=== PATIENT | female | born 1980 | race Asian ===

== ENCOUNTER 2018-07-01 12:00 | Inpatient (IN) | payer SELFPAY ==
[~2018-07-01] VITALS: Ht 158 cm; Wt 69.4 kg
[2018-07-01 10:23] LABS: BASOPHILS % (AUTO) 0.2 % (0.0-2.0); EOSINOPHILS % (AUTO) 0.6 % (0.0-4.0); HEMATOCRIT 39.4 % (36-48); LYMPHOCYTES # (AUTO) 1.4 K/uL (1.0-5.5); LYMPHOCYTES % (AUTO) 25.4 % (20.5-51.5); MEAN CORPUSCULAR HEMOGLOBIN 31 pg (27-31); MEAN CORPUSCULAR HGB CONC 33 % (32-36); MEAN CORPUSCULAR VOLUME 93 fL (79.0-98.0); MONOCYTES # (AUTO) 0.4 K/uL (0.0-1.0); NEUTROPHILS # (AUTO) 3.9 K/uL (1.8-7.7); NEUTROPHILS % (AUTO) 66.8 % (40.0-70.0); PLATELET COUNT (AUTO) 269 K/uL (130-430); RED BLOOD CELL COUNT(AUTO) 4.23 MIL/uL (4.2-6.2); RED CELL DISTRIBUTION WIDTH 13.3 % (9.0-15.0); WHITE BLOOD COUNT (AUTO) 5.7 K/uL (4.8-10.8)
[2018-07-01 10:31] LABS: BILIRUBIN,URINE NEGATIVE (NEGATIVE); CLARITY/URINE CLEAR (CLEAR); COLOR,URINE YELLOW (YELLOW); GLUCOSE,URINE NEGATIVE (NEGATIVE); KETONES,URINE NEGATIVE (NEGATIVE); LEUKOCYTE ESTERASE ,URINE 3+ (NEGATIVE); NITRITE, URINE NEGATIVE (NEGATIVE); PROTEIN URINE NEGATIVE (NEGATIVE); UROBILINOGEN,URINE 0.2 (0.2-1.0)
[2018-07-01 10:35] LABS: BLOOD, URINE TRACE (NEGATIVE)
[2018-07-01 11:26] LABS: BACTERIA,URINE MODERATE /HPF (None Seen); WBC,URINE 20-50 /HPF (0-3)
[2018-07-01 11:27] LABS: MUCUS,URINE None Seen /LPF (None Seen); URINE AMORPHOUS PHOSPHATES 2+ /HPF (None Seen); YEAST,URINE None Seen /HPF (None Seen)
[2018-07-02] MEDS ORDERED: CEFAZOLIN 2 GM IVPB PREMIX 50 ML IV ONE (10:15)
[2018-07-02] MEDS ORDERED: LR 1,000 ML IV ONE (10:15)
[2018-07-02 11:25] VITALS: BP_SYST 119
[2018-07-02] MEDS ORDERED: LANOLIN 7 GM OINT. TP PRN (12:15)
[2018-07-02] MEDS ORDERED: MEASLES,MUMPS&RUBELLA VACC/PF 12500 UNIT/0.5 ML VIAL SUBQ PRN (12:15)
[2018-07-02] MEDS ORDERED: ANUSOL 1 EA SUPP.RECT (PREPARATION H) RC PRN (12:15)
[2018-07-02] MEDS ORDERED: OXYCODONE/ACETAMINOPHEN 5-325 TABLET PO PRN (12:15)
[2018-07-02] MEDS ORDERED: HYDROcodone/ACETAMIN 5-325 MG TAB (NORCO/ VICODIN) PO PRN (12:15)
[2018-07-02] MEDS ORDERED: OXYTOCIN/0.9 % SODIUM CHLORIDE 1,000 ML IV ONE ×2 (12:15→13:43)
[2018-07-02] MEDS ORDERED: LR 1,000 ML IV SCH (12:42)
[2018-07-02] MEDS ORDERED: KETOROLAC TROMETHAMINE 60 MG/2 ML VIAL IM PRN (12:45)
[2018-07-02] MEDS ORDERED: ONDANSETRON HCL 4 MG/2 ML VIAL IVP PRN (12:45)
[2018-07-02] MEDS ORDERED: METOCLOPRAMIDE HCL 10 MG/2 ML VIAL IVP PRN (12:45)
[2018-07-02] MEDS ORDERED: NALOXONE HCL 0.4 MG/ML AMP (NARCAN) IVP PRN (12:45)
[2018-07-02] MEDS ORDERED: MORPHINE SULFATE 10MG/10ML PF AMP SP SCH (12:45)
[2018-07-02] MEDS ORDERED: MEPERIDINE HCL/PF 25 MG/ML DISP.SYRIN IVP PRN (12:45)
[2018-07-02] MEDS ORDERED: DIPHENHYDRAMINE INJ 50 MG/ML VIAL IM PRN (12:45)
[2018-07-02] MEDS ORDERED: MEPERIDINE HCL/PF 50 MG/ML AMP IVP PRN ×2 (12:45)
[2018-07-02 13:30] VITALS: BP_SYST 105
[2018-07-02] MEDS ORDERED: ONDANSETRON HCL 4 MG/2 ML VIAL ONE (13:30)
[2018-07-02] MEDS ORDERED: OXYTOCIN 10 UNIT/ML VIAL ONE (13:30)
[2018-07-02] MEDS ORDERED: LR 1,000 ML IV.SOLN IV ONE (13:30)
[2018-07-02] MEDS ORDERED: MIDAZOLAM HCL 5 MG/ML VIAL (VERSED) IV ONE (13:30)
[2018-07-02] MEDS ORDERED: BUPIVACAINE /DEX PF 0.75% SPINAL 2 ML AMP INJ ONE (13:30)
[2018-07-02] MEDS ORDERED: NS IRRIG SOLN 1000 ML IR ONE (13:30)
[2018-07-02] MEDS ORDERED: MORPHINE SULFATE 10MG/10ML PF AMP ONE (13:30)
[2018-07-02] MEDS: CEFAZOLIN 1 GM IVPB PREMIX 50 ML IV SCH (17:46)
[2018-07-02] MEDS ORDERED: TEMAZEPAM 15 MG CAPSULE PO PRN (21:00)
[2018-07-03] MEDS: CEFAZOLIN 1 GM IVPB PREMIX 50 ML IV SCH ×2 (00:16→05:23)
[2018-07-03 05:06] LABS: BASOPHILS # (AUTO) 0.1 K/uL (0.0-0.2); BASOPHILS % (AUTO) 0.8 % (0.0-2.0); EOSINOPHILS % (AUTO) 0.2 % (0.0-4.0); HEMATOCRIT 34.3 % (36-48); HEMOGLOBIN 11.7 g/dL (12.0-16.0); LYMPHOCYTES # (AUTO) 1.1 K/uL (1.0-5.5); LYMPHOCYTES % (AUTO) 11.2 % (20.5-51.5); MEAN CORPUSCULAR HEMOGLOBIN 32 pg (27-31); MEAN CORPUSCULAR HGB CONC 34 % (32-36); MEAN CORPUSCULAR VOLUME 93 fL (79.0-98.0); MONOCYTES # (AUTO) 0.6 K/uL (0.0-1.0); NEUTROPHILS # (AUTO) 7.8 K/uL (1.8-7.7); NEUTROPHILS % (AUTO) 81.8 % (40.0-70.0); PLATELET COUNT (AUTO) 214 K/uL (130-430); RED BLOOD CELL COUNT(AUTO) 3.68 MIL/uL (4.2-6.2); RED CELL DISTRIBUTION WIDTH 13.1 % (9.0-15.0); WHITE BLOOD COUNT (AUTO) 9.6 K/uL (4.8-10.8)
[2018-07-03] MEDS: IBUPROFEN 600 MG TABLET PO SCH ×4 (05:23→23:53)
[2018-07-03] MEDS: SIMETHICONE 80 MG TAB.CHEW PO PRN ×2 (12:12→15:39)
[2018-07-03] MEDS: DOCUSATE SODIUM 100 MG CAPSULE PO PRN ×2 (12:12→23:53)
[2018-07-03] MEDS: OXYCODONE/ACETAMINOPHEN 5-325 TABLET PO PRN (15:39)
[2018-07-03] MEDS: CEPHALEXIN 500 MG CAPSULE PO SCH ×2 (18:03→23:54)
[2018-07-04] MEDS: CEPHALEXIN 500 MG CAPSULE PO SCH ×4 (05:42→23:50)
[2018-07-04] MEDS: IBUPROFEN 600 MG TABLET PO SCH ×4 (05:42→23:50)
[2018-07-04] MEDS: DOCUSATE SODIUM 100 MG CAPSULE PO PRN ×2 (12:03→23:50)
[2018-07-04] MEDS: SIMETHICONE 80 MG TAB.CHEW PO PRN ×2 (12:03→23:50)
[2018-07-05] MEDS: IBUPROFEN 600 MG TABLET PO SCH ×2 (06:09→12:38)
[2018-07-05] MEDS: DOCUSATE SODIUM 100 MG CAPSULE PO PRN (08:50)
[2018-07-05] MEDS: SIMETHICONE 80 MG TAB.CHEW PO PRN (08:50)
[2018-07-05] MEDS: CEPHALEXIN 500 MG CAPSULE PO SCH (12:37)
[2018-07-05] MEDS: OXYCODONE/ACETAMINOPHEN 5-325 TABLET PO PRN ×2 (12:38→15:53)
== END 2018-07-05 16:00 | disposition home or self-care (01) | DRG 766 ==
LOC: SNS 07-02 08:54 → SPU 07-02 10:03
PROVIDERS: ADMIT Obstetrics & Gynecology; ATTEND Obstetrics & Gynecology
PROC: 10D00Z1 Extraction of Products of Conception, Low, Open Approach (ICD-10-PCS; principal; 2018-07-03)
PROC: 0UN90ZZ Release Uterus, Open Approach (ICD-10-PCS; 2018-07-03)
DX: O34.211 Maternal care for low transverse scar from previous cesarean delivery (principal); Z37.0 Single live birth; Z3A.39 39 weeks gestation of pregnancy; O99.89 Other specified diseases and conditions complicating pregnancy, childbirth and the puerperium; Z30.2 Encounter for sterilization; N73.6 Female pelvic peritoneal adhesions (postinfective)
CPT/HCPCS: 36415; 81000-TC; 81002-TC; 85025; 86886; 86900; 86901; 87086; 94760; J0690; J2250; J2274; J2405; J2590; J3490; J7120